=== PATIENT | female | born 1945 | race Hispanic/Latino ===

== ENCOUNTER 2020-05-24 14:16 | Emergency (ER) | payer OTHER, MEDICARE | END 2020-05-24 16:12 | disposition home or self-care (01) | LOC: EDH 14:16 | DX: M25.562 Pain in left knee (principal); I10 Essential (primary) hypertension; K21.9 Gastro-esophageal reflux disease without esophagitis; E78.00 Pure hypercholesterolemia, unspecified; Z98.890 Other specified postprocedural states | CPT/HCPCS: 36415; 85378 ==

== ENCOUNTER 2020-07-12 06:28 | Day surgery (SDC) | payer OTHER, MEDICARE ==
[2020-07-04 13:47] LABS: BASOPHILS % (AUTO) 1.3 % (0.0-5.0); EOSINOPHILS % (AUTO) 4.9 % (0.0-8.0); HEMATOCRIT 42.7 % (36-48); LYMPHOCYTES % (AUTO) 34.7 % (21.0-51.0); MEAN CORPUSCULAR HEMOGLOBIN 28.9 pg (27.0-33.0); MEAN CORPUSCULAR HGB CONC 32.3 g/dL (32.0-36.0); MEAN CORPUSCULAR VOLUME 89.5 fL (79-99); MONOCYTES % (AUTO) 6.9 % (3.0-13.0); NEUTROPHILS % (AUTO) 52.1 % (40.0-77.0); PLATELET COUNT (AUTO) 312 K/uL (130-400); RED BLOOD CELL COUNT(AUTO) 4.77 MIL/uL (4.00-5.50); RED CELL DISTRIBUTION WIDTH 12.6 % (11.0-15.5); WHITE BLOOD COUNT (AUTO) 8.2 K/uL (4.8-10.8)
[2020-07-04 14:02] LABS: CREATININE 0.8 mg/dL (0.5-1.5); POTASSIUM 3.4 mmol/L (3.5-5.1)
[2020-07-09] MEDS: CEFAZOLIN SODIUM 1 GM VIAL IVP SCH (08:15)
[2020-07-12] VITALS (19 sets, daily range): BP systolic 88–139; BP diastolic 48–87
[~2020-07-12] VITALS: Ht 154.9 cm; Wt 56.4 kg
[~2020-07-12 06:28] MED LIST: AMLO5TAB9 PO; ATOR20TA65 PO; CEVI30CA7 PO; LISI40TA4 PO; OMEP40CA13 PO; OSPE60TA2 PO
[2020-07-12] MEDS ORDERED: LIDOCAINE PF 2% 5ML ABBOJECT ONE (06:53)
[2020-07-12] MEDS ORDERED: SUCCINYLCHOLINE CHLORIDE 20 MG/ML 10 ML VIAL ONE (06:53)
[2020-07-12] MEDS ORDERED: ONDANSETRON HCL 4 MG/2 ML VIAL ONE (06:54)
[2020-07-12] MEDS ORDERED: GLYCOPYRROLATE 1 MG/5 ML SYRINGE ONE (06:54)
[2020-07-12] MEDS ORDERED: MIDAZOLAM HCL 1 MG/ML 2ML VIAL ONE (06:54)
[2020-07-12] MEDS ORDERED: PROPOFOL 10 MG/ML 20ML VIAL IV ONE (06:54)
[2020-07-12] MEDS ORDERED: NEOSTIGMINE 5MG/5ML SYR IV ONE (06:54)
[2020-07-12] MEDS ORDERED: ROCURONIUM 10MG/1ML SYR 10 MG/ML ML ONE (06:54)
[2020-07-12] MEDS ORDERED: DEXAMETHASONE SOD PHOSPHATE 10MG/ML 1ML VIAL ONE (06:54)
[2020-07-12] MEDS ORDERED: LACTATED RINGERS 1000ML 1,000 ML IV ONE (06:54)
[2020-07-12] MEDS ORDERED: FENTANYL CITRATE PF 50 MCG/1 ML 2ML VIAL ONE ×2 (06:55→08:23)
[2020-07-12] MEDS: CEFAZOLIN SODIUM 1 GM VIAL IVP SCH (08:00)
[2020-07-12] MEDS ORDERED: BUPIVACAINE/EPI/PF 0.25% 30ML VIAL IJ ONE (08:13)
[2020-07-12] MEDS ORDERED: MEPERIDINE-PF 25 MG/ML SYG ONE (09:27)
--- NOTE | 2020-07-12 10:00 | NUR ---
post received pt from [facility], s/ p left knee arthroscopy menisectomy, dressing dry and intact to site. neurovascular checks wnl. vs stable on arrival. pt awake and alert in bed,no distress noted. pt denied any pain or discomforts. call light within reach. crutches provided to patient per md orders
--- NOTE | 2020-07-12 10:35 | NUR ---
dc pt dc home via [facility],no distress noted. denied any pain or discomforts. pt accompanied by spouse.
== END 2020-07-12 10:35 | disposition home or self-care (01) ==
LOC: DAH 06:28
PROVIDERS: ATTEND Orthopaedic Surgery
DX: S83.242A Other tear of medial meniscus, current injury, left knee, initial encounter (principal); M22.42 Chondromalacia patellae, left knee; M17.12 Unilateral primary osteoarthritis, left knee; I10 Essential (primary) hypertension; E78.00 Pure hypercholesterolemia, unspecified; K21.9 Gastro-esophageal reflux disease without esophagitis; X58.XXXA Exposure to other specified factors, initial encounter; Y93.89 Activity, other specified; Y92.89 Other specified places as the place of occurrence of the external cause; Y99.8 Other external cause status; Z20.828 Contact with and (suspected) exposure to other viral communicable diseases
CPT/HCPCS: 29881; 36415; 80048; 85025; 93005; A4215; A4221; A4222; A4223; A4606; A4649 ×3; A4663; A4930 ×2; A6223; A6260; C9803; J0330; J0690; J1100; J2001; J2175; J2250; J2405; J2704; J2710; J3010 ×2; J3490 ×2; J7120; U0003

== ENCOUNTER → 2022-11-18 | Outpatient (CLI) | payer MEDICARE ==
[~2022-11-18] MED LIST changes: +AMLO-257 PO; -AMLO5TAB9 PO; -LISI40TA4 PO; +LISI40TA9 PO; -OMEP40CA13 PO; +OMEP40CA21 PO; +REGADENOSON 0.4 MG/5 ML PF SYG IVP SCH
== END | disposition home or self-care (01) ==
LOC: SHCH 08:16
PROVIDERS: ATTEND Internal Medicine Cardiovascular Disease
DX: Z01.810 Encounter for preprocedural cardiovascular examination (principal); R60.0 Localized edema; M34.1 CR(E)ST syndrome; I10 Essential (primary) hypertension; E78.2 Mixed hyperlipidemia; Z79.899 Other long term (current) drug therapy; Z91.81 History of falling
CPT/HCPCS: 78452; 96374; 93017; J2785; A9500 ×2

== ENCOUNTER 2023-03-04 08:04 | Observation (INO) | payer MEDICARE ==
[2023-03-02 15:17] LABS: BASOPHILS % (AUTO) 0.7 % (0.0-5.0); EOSINOPHILS % (AUTO) 3.5 % (0.0-8.0); HEMATOCRIT 40.9 % (36-48); LYMPHOCYTES % (AUTO) 29.5 % (21.0-51.0); MEAN CORPUSCULAR HEMOGLOBIN 29.5 pg (27.0-33.0); MEAN CORPUSCULAR HGB CONC 32.8 g/dL (32.0-36.0); MEAN CORPUSCULAR VOLUME 90.1 fL (79-99); MONOCYTES % (AUTO) 6.2 % (3.0-13.0); NEUTROPHILS % (AUTO) 59.8 % (40.0-77.0); PLATELET COUNT (AUTO) 282 K/uL (130-400); RED BLOOD CELL COUNT(AUTO) 4.54 MIL/uL (4.00-5.50); RED CELL DISTRIBUTION WIDTH 13.3 % (11.0-15.5); WHITE BLOOD COUNT (AUTO) 9.7 K/uL (4.8-10.8)
[2023-03-02 15:27] LABS: POTASSIUM 3.8 mmol/L (3.5-5.1)
[2023-03-02 15:28] VITALS: BP 141/77; PULSE 81; RESP 14
[2023-03-02 15:29] LABS: INR 1.03 (0.85-1.15); PROTHROMBIN TIME 11.2 SEC (9.6-11.6)
[~2023-03-04] VITALS: Ht 149.9 cm; Wt 58.3 kg
[2023-03-04] VITALS (22 sets, daily range): BP systolic 113–159; BP diastolic 73–93; PULSE 64–89; RESP 11–20
[~2023-03-04 08:04] MED LIST changes: -REGADENOSON 0.4 MG/5 ML PF SYG IVP SCH
[2023-03-04] MEDS ORDERED: LACTATED RINGERS 1000ML 1,000 ML IV ONE (08:57)
[2023-03-04] MEDS: CEFAZOLIN SODIUM 2 GM VIAL ONE ×2 (09:05→14:15)
[2023-03-04] MEDS ORDERED: CLON0.1T PO (09:34)
[2023-03-04] MEDS ORDERED: AMLO2.5T4 PO (09:34)
[2023-03-04] MEDS ORDERED: MYCO250C36 PO (09:34)
[2023-03-04] MEDS ORDERED: OLME40TA18 PO (09:34)
[2023-03-04] MEDS ORDERED: SPIR25TA6 PO (09:34)
[2023-03-04] MEDS ORDERED: CHOL200074 PO (09:34)
[2023-03-04] MEDS ORDERED: OMEP40CA21 PO (09:34)
[2023-03-04] MEDS ORDERED: ATOR40TA71 PO (09:34)
[2023-03-04] MEDS ORDERED: CEVI30CA7 PO (09:34)
[2023-03-04] MEDS ORDERED: AMLO-257 PO (09:34)
[2023-03-04] MEDS ORDERED: LABE100T7 PO (09:34)
[2023-03-04] MEDS ORDERED: CLONIDINE HCL 0.1 MG TABLET PO PRN (12:00)
[2023-03-04] MEDS ORDERED: TRANEXAMIC ACID 1000MG/10ML ONE (12:18)
[2023-03-04] MEDS ORDERED: ROPIVACAINE 0.5% 5MG/ML 30ML IJ ONE (12:19)
[2023-03-04] MEDS ORDERED: PROPOFOL 10 MG/ML 20ML VIAL IV ONE (13:29)
[2023-03-04] MEDS ORDERED: LIDOCAINE PF 100MG/5ML (2%) SYRINGE 5ML ONE (13:29)
[2023-03-04] MEDS ORDERED: MIDAZOLAM HCL 1 MG/ML 2ML VIAL ONE (13:29)
[2023-03-04] MEDS ORDERED: GLYCOPYRROLATE 1 MG/5 ML SYRINGE ONE (13:29)
[2023-03-04] MEDS ORDERED: FENTANYL CITRATE PF 50 MCG/1 ML 2ML VIAL ONE ×4 (13:30→17:36)
[2023-03-04] MEDS ORDERED: ROCURONIUM 10MG/1ML SYR 10 MG/ML ML ONE (13:34)
[2023-03-04] MEDS ORDERED: FAMOTIDINE 20MG VIAL IV ONE (14:13)
[2023-03-04] MEDS ORDERED: HYDROMORPHONE 1 MG INJ ONE (14:14)
[2023-03-04] MEDS ORDERED: ONDANSETRON 4MG INJ ONE (15:15)
[2023-03-04] MEDS ORDERED: NEOSTIGMINE 5MG/5ML SYR IV ONE (16:25)
[2023-03-04] MEDS ORDERED: POTASSIUM CHLORIDE 10% ELIXIR 20 MEQ/15 ML UDCUP PO PRN (16:30)
[2023-03-04] MEDS ORDERED: POTASSIUM CHLORIDE 20MEQ/100ML 100 ML IV PRN (16:30)
[2023-03-04] MEDS ORDERED: HYDROCODONE/ACETAMINOPHEN 5/325 MG TAB PO PRN (16:30)
[2023-03-04] MEDS ORDERED: KCL 20 MEQ ERTAB PO PRN (16:30)
[2023-03-04] MEDS: ACETAMINOPHEN 1,000 MG/100 ML VIAL IV SCH ×2 (17:52→21:38)
[2023-03-04] MEDS: 0.9%NACL 1000ML 1,000 ML IV SCH (19:46)
[2023-03-04] MEDS: IBUPROFEN 800MG + NS 250ML IV SCH (19:46)
[2023-03-04] MEDS: CEVIMELINE HCL 30 MG PO SCH (19:46)
[2023-03-04] MEDS: LABETALOL HCL 100 MG TABLET PO SCH (19:47)
[2023-03-04] MEDS: ASPIRIN 81 MG EC TAB PO SCH (19:47)
[2023-03-04] MEDS: MYCOPHENOLATE MOFETIL 250 MG CAPSULE PO SCH (19:47)
[2023-03-04] MEDS: AMLODIPINE 2.5 MG TAB PO SCH (19:47)
[2023-03-04] MEDS: CEFAZOLIN SODIUM 1 GM VIAL IVPB SCH (19:48)
[2023-03-04] MEDS: FAMOTIDINE 20MG TAB PO SCH (19:48)
[2023-03-04] MEDS: HYDROCODONE/ACETAMINOPHEN 10/325 MG TAB PO PRN (22:03)
[2023-03-04] MEDS: MORPHINE 4 MG SYG IVP PRN (23:55)
[2023-03-05] VITALS (8 sets, daily range): BP systolic 112–150; BP diastolic 54–78; PULSE 68–87; RESP 16–19; O2SAT 94–98
[2023-03-05] MEDS: IBUPROFEN 800MG + NS 250ML IV SCH ×2 (03:04→11:30)
[2023-03-05 04:53] LABS: HEMATOCRIT 33.1 % (36-48); MEAN CORPUSCULAR HEMOGLOBIN 29.4 pg (27.0-33.0); MEAN CORPUSCULAR HGB CONC 32.6 g/dL (32.0-36.0); MEAN CORPUSCULAR VOLUME 90.2 fL (79-99); RED BLOOD CELL COUNT(AUTO) 3.67 MIL/uL (4.00-5.50); RED CELL DISTRIBUTION WIDTH 13.4 % (11.0-15.5)
[2023-03-05] MEDS: CEFAZOLIN SODIUM 1 GM VIAL IVPB SCH (05:04)
[2023-03-05] MEDS: ACETAMINOPHEN 1,000 MG/100 ML VIAL IV SCH (05:04)
[2023-03-05 05:16] LABS: CREATININE 0.9 mg/dL (0.5-1.5); POTASSIUM 3.7 mmol/L (3.5-5.1)
[2023-03-05] MEDS: HYDROCODONE/ACETAMINOPHEN 10/325 MG TAB PO PRN ×3 (05:21→19:45)
[2023-03-05] MEDS: PANTOPRAZOLE 40 MG TAB DR PO SCH (07:30)
[2023-03-05] MEDS: CEVIMELINE HCL 30 MG PO SCH ×3 (09:00→19:45)
[2023-03-05] MEDS: ASPIRIN 81 MG EC TAB PO SCH ×2 (09:26→19:45)
[2023-03-05] MEDS: POLYETHYLENE GLYCOL 3350 17 GM POWD.PACK PO SCH (09:26)
[2023-03-05] MEDS: FAMOTIDINE 20MG TAB PO SCH ×2 (09:27→19:45)
[2023-03-05] MEDS: LABETALOL HCL 100 MG TABLET PO SCH ×2 (09:27→19:45)
[2023-03-05] MEDS: SPIRONOLACTONE 25 MG TAB PO SCH (09:27)
[2023-03-05] MEDS: AMLODIPINE 5 MG TAB PO SCH (09:27)
[2023-03-05] MEDS: LOSARTAN 100 MG TABLET PO SCH (09:27)
[2023-03-05] MEDS: MORPHINE 4 MG SYG IVP PRN ×2 (10:31→14:46)
[2023-03-05] MEDS: ONDANSETRON 4MG INJ IVP PRN ×2 (11:18→17:48)
[2023-03-05] MEDS: 0.9%NACL 1000ML 1,000 ML IV SCH (12:30)
[2023-03-05] MEDS: MYCOPHENOLATE MOFETIL 250 MG CAPSULE PO SCH (19:45)
[2023-03-05] MEDS: AMLODIPINE 2.5 MG TAB PO SCH (19:45)
[2023-03-06 04:00] VITALS: BP 126/79; PULSE 87; RESP 20
[2023-03-06] MEDS: HYDROCODONE/ACETAMINOPHEN 10/325 MG TAB PO PRN ×2 (04:21→14:55)
[2023-03-06 08:00] VITALS: BP 105/57; PULSE 81; RESP 17; O2SAT 95
[2023-03-06] MEDS: AMLODIPINE 5 MG TAB PO SCH (09:00)
[2023-03-06] MEDS: LOSARTAN 100 MG TABLET PO SCH (09:00)
[2023-03-06] MEDS: CEVIMELINE HCL 30 MG PO SCH ×2 (09:00→14:00)
[2023-03-06] MEDS: LABETALOL HCL 100 MG TABLET PO SCH (09:00)
[2023-03-06] MEDS: ONDANSETRON 4MG INJ IVP PRN (09:01)
[2023-03-06] MEDS: POLYETHYLENE GLYCOL 3350 17 GM POWD.PACK PO SCH (10:32)
[2023-03-06] MEDS: PANTOPRAZOLE 40 MG TAB DR PO SCH (10:32)
[2023-03-06] MEDS: FAMOTIDINE 20MG TAB PO SCH (10:32)
[2023-03-06] MEDS: ASPIRIN 81 MG EC TAB PO SCH (10:32)
[2023-03-06] MEDS: SPIRONOLACTONE 25 MG TAB PO SCH (10:32)
[2023-03-06 12:00] VITALS: BP 113/61; PULSE 80; RESP 20
[2023-03-07] MEDS ORDERED: BISACODYL 10 MG SUPP.RECT RC PRN (16:30)
== END 2023-03-06 18:16 | disposition home health service (06) ==
LOC: DAH 08:04 → DAHIP 08:05 → DAH 08:05 → 4BH 18:20
PROVIDERS: ADMIT Orthopaedic Surgery; ATTEND Orthopaedic Surgery
DX: M17.12 Unilateral primary osteoarthritis, left knee (principal); Z20.822 Contact with and (suspected) exposure to COVID-19; I10 Essential (primary) hypertension; E78.5 Hyperlipidemia, unspecified; K21.9 Gastro-esophageal reflux disease without esophagitis; E03.9 Hypothyroidism, unspecified; Z79.899 Other long term (current) drug therapy; Z90.710 Acquired absence of both cervix and uterus; Z91.048 Other nonmedicinal substance allergy status
CPT/HCPCS: 80048 ×2; 85025; 85610; 85730; 87426; 36415 ×2; 87641; 27447; 96376 ×3; 96365; 96375 ×2; 96366; 85027; 97161; 97116 ×4; 97530 ×2; A6260; A4649 ×6; C1713 ×2; G0378 ×48; A4663; J7120 ×2; J3490 ×3; J3010 ×4; J1170; J2710; J2001; J2250; J2704; J2405 ×4; J2270 ×3; J2795; J7517 ×2; J1741 ×3; J0690 ×2; A6223; G0168; A4930; A6212; C1776; A5120; A4215; A4223; A4222; A4221; A4600; 97039

== ENCOUNTER → 2023-11-03 | Outpatient (CLI) | payer MEDICARE ==
[~2023-11-03] MED LIST changes: +AMLO2.5T4 PO; -ATOR20TA65 PO; +ATOR40TA71 PO; +CHOL200074 PO; +CLON0.1T PO; +LABE100T7 PO; -LISI40TA9 PO; +MYCO250C36 PO; +OLME40TA18 PO; -OSPE60TA2 PO; +SPIR25TA6 PO
== END | disposition home or self-care (01) ==
LOC: RAH 09:00
PROVIDERS: ATTEND Internal Medicine Gastroenterology
DX: K44.9 Diaphragmatic hernia without obstruction or gangrene (principal); K21.00 Gastro-esophageal reflux disease with esophagitis, without bleeding
CPT/HCPCS: 74240

== ENCOUNTER → 2024-01-26 | Outpatient (CLI) | payer MEDICARE | END | disposition home or self-care (01) | LOC: SHCH 07:50 | PROVIDERS: ATTEND Internal Medicine Cardiovascular Disease | DX: I08.0 Rheumatic disorders of both mitral and aortic valves (principal); I11.9 Hypertensive heart disease without heart failure; E78.5 Hyperlipidemia, unspecified | CPT/HCPCS: 93306 ==

== ENCOUNTER → 2025-05-02 | Outpatient (CLI) | payer MEDICARE ==
--- NOTE | 2025-05-02 21:40 | HMCSR ---
APPROVED REPORT EXAM: Two-dimensional and M-mode echocardiogram with Doppler and color Doppler. INDICATION ICD: M34.1 2D Dimensions RVDd2.9 cmLVEF(%)84.0 (>50%)LVED Vol(simp.)53.5 mL IVSd1.0 (0.7-1.1cm)FS(%)52 %LVES Vol(simp.)19.6 mL LVDd4.0 (3.8-5.6cm)LA (2D)3.5 (1.6-4.0cm)LVEF(%, simp.)63 % PWd1.1 (0.7-1.1cm)Ao Root(2D)2.6 (2.0-3.7cm)LA ESV INDEX (BP)18.60 mL/m2 LVDs1.9 (2.5-4.0cm)LVOT diam1.7 (1.8-2.4cm) IVC diam1.2 cm M-Mode Dimensions EPSS1.1 cm LA (MM)3.2 (1.6-4.0cm) Ao Root(MM)2.8 (2.0-3.7cm) Aortic Valve AoV Vmax1.5 m/Ben Peak GR8.7 mmHgLVOT Vmax1.2 m/s AoV VTI0.3 mAo Mean GR4.4 mmHgLVOT VTI0.26 m MICHAEL (VMAX)1.83 cm2AVA (VTI) 1.8 cm2 Mitral Valve MV E Vmax53.0 cm/sDECEL Rcls282 ms MV A Nmof600.2 cm/sP 1/2 T84 ms E/A ratio0.5MVA (PHT)2.6 cm2 TDI E/E' Medial6.9E/E' Lateral5.6 Medial E' Peak V7.72 cm/sLateral E' Peak V9.53 cm/s Left Ventricle The left ventricle is normal size. There is normal LV segmental wall motion. There is mild concentric LVH. LVEF is 60-65%. The left ventricular diastolic function is normal. Right Ventricle The right ventricle is normal size. The right ventricular systolic function is normal. Atria The left atrium size is normal. The right atrium size is normal. Aortic Valve The aortic valve is trileaflet and mildly sclerotic, but non-stenotic. Trivial aortic regurgitation. There is no aortic valvular stenosis. Mitral Valve The mitral valve is normal in structure. There is no mitral valve regurgitation noted. There is no mi tral valve stenosis. Tricuspid Valve The tricuspid valve is normal in structure. There is no tricuspid valve regurgitation noted. Pulmonic Valve The pulmonary valve is normal in structure. There is no pulmonic valvular regurgitation. Great Vessels The aortic root is normal in size. The IVC is normal in size and collapses >50% with inspiration. Pericardium There is no pericardial effusion. Conclusion The left ventricle is normal size. There is mild concentric LVH. There is normal LV segmental wall motion. LVEF is 60-65%. The left ventricular diastolic function is normal. The aortic valve is trileaflet and mildly sclerotic, but non-stenotic. There is no mitral valve regurgitation noted. There is no pericardial effusion.
== END | disposition home or self-care (01) ==
LOC: RAH 12:34
PROVIDERS: ATTEND Internal Medicine Rheumatology
DX: I35.8 Other nonrheumatic aortic valve disorders (principal); M34.1 CR(E)ST syndrome
CPT/HCPCS: 93306